=== PATIENT | female | born 1990 | race Caucasian/White ===

== ENCOUNTER 2016-07-17 22:14 | Emergency (ER) | payer OTHER ==
[~2016-07-17] VITALS: Ht 167.6 cm; Wt 132.4 kg
[2016-07-17] MEDS ORDERED: IBUP-1954 PO (22:24)
[2016-07-17] MEDS ORDERED: diphenhydrAMINE 50 MG/1 ML VIAL IV ONE (22:45)
[2016-07-17] MEDS ORDERED: METOCLOPRAMIDE HCL 10 MG/2 ML VIAL IV ONE (22:45)
[2016-07-17] MEDS ORDERED: IV NORMAL SALINE 1000 ML BAG IV ONE (22:45)
[2016-07-17] MEDS ORDERED: diphenhydrAMINE 50 MG/1 ML VIAL ONE (22:50)
[2016-07-17] MEDS ORDERED: METOCLOPRAMIDE HCL 10 MG/2 ML VIAL ONE (22:50)
[2016-07-17 22:55] LABS: CREATININE 0.8 mg/dL (0.6-1.3); POTASSIUM 3.4 mmol/L (3.5-5.1)
[2016-07-17 23:01] LABS: BASOPHILS # (AUTO) 0.1 K/uL (0.0-8.0); BASOPHILS % (AUTO) 0.4 % (0.0-2.0); EOSINOPHILS # (AUTO) 0.1 K/uL (0.0-0.7); EOSINOPHILS % (AUTO) 0.6 % (0.0-7.0); HEMATOCRIT 37.3 % (37-47); HEMOGLOBIN 12.8 G/DL (12.0-16.0); LYMPHOCYTES # (AUTO) 2.4 K/UL (0.8-4.8); MEAN CORPUSCULAR HEMOGLOBIN 28.5 UUG (27.0-31.0); MEAN CORPUSCULAR HGB CONC 34 g/dL (32.0-37.0); MEAN CORPUSCULAR VOLUME 83.1 FL (81.0-99.0); MONOCYTES # (AUTO) 0.6 K/UL (0.1-1.30); MONOCYTES % (AUTO) 4.2 % (0.0-11.0); NEUTROPHILS % (AUTO) 76.8 % (38.5-71.5); PLATELET COUNT (AUTO) 315 K/UL (150-450); RED BLOOD CELL COUNT(AUTO) 4.49 MIL/UL (4.2-5.4); WHITE BLOOD COUNT (AUTO) 13.2 K/UL (4.0-11.2)
--- NOTE | 2016-07-17 23:22 | NUR ---
PATIENT OUT OF UNIT FOR CT SCAN VIA GURNY
--- NOTE | 2016-07-17 23:30 | NUR ---
PATIENT BACK FROM CT SCAN WITH NO DISTRESS NOTED
--- NOTE | 2016-07-17 23:46 | NUR ---
PATIENT VOMITING. RECIEVED ORDER AND CARRIED OUT
--- NOTE | 2016-07-17 23:52 | NUR ---
PATIENT STATES PATTON IS /10 AT THIS TIME FROM 11/14 FROM ARRIVAL
[2016-07-17] MEDS ORDERED: ONDANSETRON 4 MG/2 ML VIAL ONE (23:58)
[2016-07-18] MEDS ORDERED: ONDANSETRON 4 MG/2 ML VIAL IV ONE
--- NOTE | 2016-07-18 01:16 | NUR ---
Obtain consent from patient for Lumbar Puncture as Dr Vergara ordered
[2016-07-18] MEDS ORDERED: MORPHINE SULFATE 2 MG/1 ML DISP.SYRIN IV ONE (01:45)
[2016-07-18] MEDS ORDERED: MORPHINE SULFATE 2 MG/1 ML DISP.SYRIN ONE (02:07)
--- NOTE | 2016-07-18 03:26 | NUR ---
patient sleeping with no distress noted
--- NOTE | 2016-07-18 07:15 | NUR ---
PT IS AWAKE AND TALKING TO FAMILY. DENIES PAIN.
--- NOTE | 2016-07-18 08:15 | NUR ---
PT AND PT'S MOTHER STATE, NO NEED TO HAVE PT, DO A LUMBAR PUNCTURE SINCE SHE IS NOT IN PAIN ANY MORE AND WISH TO GO HOME. DR FLORES AWARE AND SPOKE TO THE RADIOLOGIST.
[2016-07-18 08:37] VITALS: BP 120/61
--- NOTE | 2016-07-18 08:37 | NUR ---
IV removed. Catheter intact and site benign. Pressure and 4x4 gauze applied to site. No bleeding noted.
--- NOTE | 2016-07-18 08:45 | NUR ---
Patient discharged to home in stable conditon. Written and verbal after care instructions given. Patient verbalizes understanding of instructions.
== END 2016-07-18 08:45 | disposition home or self-care (01) ==
LOC: ER 22:16
DX: R51 Headache (principal); R11.10 Vomiting, unspecified; H53.8 Other visual disturbances
CPT/HCPCS: 36415; 70450; 84703; 85025; A4663; J1200; J2270; J2405; J2765; J7030

== ENCOUNTER 2018-03-30 12:49 | Emergency (ER) | payer SELFPAY ==
[~2018-03-30] VITALS: Ht 167.6 cm; Wt 126.6 kg
[~2018-03-30 12:49] MED LIST: IBUP-1954 PO
--- NOTE | 2018-03-30 13:04 | NUR ---
PT A/OX4, PRESENTS TO THE ER C/O FLU-LIKE SYMPTOMS X 2 WEEKS. PT DOES NOT APPEAR TO BE IN ANY APPARENT DISTRESS AT THIS TIME. VSS. PT DENIES PAIN, C/P, SOB, N/V/D, DIZZINESS.
--- NOTE | 2018-03-30 13:08 | NUR ---
RAVINDER MALONEY AT BEDSIDE FOR MSE.
--- NOTE | 2018-03-30 13:16 | NUR ---
Patient discharged to home in stable conditon. Written and verbal after care instructions given. Patient verbalizes understanding of instructions. PT D/C W/ PRESCRIPTIONS. ALL BELONGINGS W/ PT. PT SELF-AMBULATED W/O DIFFICULTY.
[2018-03-30 13:17] VITALS: BP 112/75
== END 2018-03-30 13:17 | disposition home or self-care (01) ==
LOC: ER 12:49
DX: J06.9 Acute upper respiratory infection, unspecified (principal); Z79.1 Long term (current) use of non-steroidal anti-inflammatories (NSAID)
CPT/HCPCS: A4663